=== PATIENT | male | born 1965 | race Two or more races ===

== ENCOUNTER 2017-02-09 21:06 | Emergency (ER) | payer MEDICAID ==
[~2017-02-09] VITALS: Ht 175.3 cm; Wt 104.3 kg
[2017-02-09 22:19] LABS: Urine Bilirubin Negative (Negative); Urine Blood TRACE /uL (Negative); Urine Color Yellow (Yellow); Urine Glucose Normal (Normal); Urine Hyaline Cast FEW /lpf (0 - 2); Urine Ketone Negative (Negative); Urine Mucus FEW (None Seen); Urine RBC 7 /hpf (0 - 3); Urine Squamous Epithelial Cell FEW /hpf (<5); Urine Urobilinogen Normal (Negative); Urine pH 5.5 (5.0-8.0)
[2017-02-09 22:29] LABS: Basophils # (auto) 0 uL; Basophils % (auto) 0.6 % (0.0-2.0); Eosinophils # (auto) 0.1 uL; Eosinophils % (auto) 1.4 % (0.0-7.0); Hematocrit 41.5 % (41.0-53.0); Hemoglobin 14.1 g/dL (13.5-17.5); Lymphocytes # (auto) 1.7 uL; Lymphocytes % (auto) 21.9 % (10.0-50.0); Mean Corpuscular Hemoglobin 29.9 pg (28.0-32.0); Mean Corpuscular Hgb Conc. 33.8 g/dL (32.0-36.0); Mean Corpuscular Volume 88.5 fL (80.0-100.0); Mean Platelet Volume 8.4 fL (7.4-10.4); Monocytes # (auto) 0.5 uL; Monocytes % (auto) 6.1 % (0.0-12.0); Neutrophils # (auto) 5.4 uL; Platelet Count (auto) 301 10^3/uL (140-450); Red Cell Distribution Width 13.8 % (11.6-16.0); White Blood Cell 7.7 10^3/uL (4.4-10.8)
[2017-02-09 22:46] LABS: Albumin 3.8 g/dL (3.4-5.0); BUN/Creatinine Ratio 14.8; Bilirubin, Total 0.7 mg/dL (0.2-1.0); Calcium 9.1 mg/dL (8.5-10.1); Potassium 3.9 mmol/L (3.5-5.1); Total Protein 8.1 g/dL (6.4-8.2)
[2017-02-09 22:49] LABS: Urine Nitrite POSITIVE (Negative)
[2017-02-10] MEDS ORDERED: MORPHINE SULFATE 4 MG/ML SYRG IV ONE (03:45)
[2017-02-10] MEDS ORDERED: MORPHINE SULFATE 4 MG/ML SYRG IM ONE (03:45)
[2017-02-10] MEDS ORDERED: ONDANSETRON HCL 4 MG/2 ML VIAL IM ONE (03:45)
[2017-02-10] MEDS ORDERED: ONDANSETRON HCL 4 MG/2 ML VIAL IV ONE (03:45)
[2017-02-10 05:37] VITALS: BP 143/89
== END 2017-02-10 05:44 | disposition home or self-care (01) ==
LOC: ER 21:20
DX: N39.0 Urinary tract infection, site not specified (principal)
CPT/HCPCS: 36415; 80053; 81001; 85025; 96372; 99284; J2270; J2405

== ENCOUNTER 2018-11-02 10:44 | Emergency (ER) | payer MEDICAID ==
[~2018-11-02] VITALS: Ht 175.3 cm; Wt 108.9 kg
[2018-11-02 12:58] VITALS: BP 152/94
[2018-11-02 13:32] LABS: Urine Amorphous Crystal MOD /hpf (None Seen); Urine Bacteria MANY /hpf (None Seen); Urine Blood Negative /uL (Negative); Urine Mucus FEW (None Seen); Urine Specific Gravity 1.018 (1.001-1.035); Urine WBC 148 /hpf (0 - 3)
== END 2018-11-02 14:04 | disposition home or self-care (01) ==
LOC: ER 10:49
DX: N39.0 Urinary tract infection, site not specified (principal); I10 Essential (primary) hypertension; F41.9 Anxiety disorder, unspecified
CPT/HCPCS: 81001

== ENCOUNTER 2019-01-21 03:26 | Emergency (ER) | payer MEDICAID ==
[~2019-01-21] VITALS: Ht 182.9 cm; Wt 95.3 kg
[2019-01-21 03:51] VITALS: BP 188/127
== END 2019-01-21 05:51 | disposition left against medical advice (07) ==
LOC: ER 03:27
DX: R31.9 Hematuria, unspecified (principal); Z53.21 Procedure and treatment not carried out due to patient leaving prior to being seen by health care provider

== ENCOUNTER 2019-06-24 08:55 | Emergency (ER) | payer MEDICAID ==
[~2019-06-24] VITALS: Ht 175.3 cm; Wt 104.3 kg
[2019-06-24 09:20] VITALS: BP 130/85
[2019-06-24 09:29] LABS: Urine Bacteria MANY /hpf (None Seen); Urine Blood Negative /uL (Negative); Urine Specific Gravity 1.014 (1.001-1.035); Urine WBC 37 /hpf (0 - 3)
== END 2019-06-24 09:55 | disposition home or self-care (01) ==
LOC: ER 08:55
DX: N39.0 Urinary tract infection, site not specified (principal); F41.9 Anxiety disorder, unspecified; I10 Essential (primary) hypertension
CPT/HCPCS: 81001

== ENCOUNTER 2019-12-19 11:15 | Emergency (ER) | payer MEDICAID ==
[~2019-12-19] VITALS: Ht 175.3 cm; Wt 106.6 kg
[2019-12-19 12:20] VITALS: BP 159/103
== END 2019-12-19 12:43 | disposition home or self-care (01) ==
LOC: ER 11:15
DX: L73.9 Follicular disorder, unspecified (principal); I10 Essential (primary) hypertension; Z87.442 Personal history of urinary calculi

== ENCOUNTER 2020-03-01 20:57 | Emergency (ER) | payer MEDICAID ==
[~2020-03-01] VITALS: Ht 175.3 cm; Wt 106.6 kg
[2020-03-01] MEDS ORDERED: KETOROLAC TROMETH 60MG/2ML VIAL IM ONE (22:30)
[2020-03-01] MEDS ORDERED: HYDROcodone-ACET 5/325MG TAB PO ONE (22:30)
[2020-03-01] MEDS ORDERED: TETANUS-DIPTH-ACEL PERTUSSIS 0.5ML SYR Tdap IM ONE (22:30)
[2020-03-01] MEDS ORDERED: LIDOCAINE 1% HCL (LOCAL ANESTH.) INJ 20ML MDV IJ ONE (22:30)
[2020-03-02 00:46] VITALS: BP 125/80
== END 2020-03-02 01:02 | disposition home or self-care (01) ==
LOC: ER 20:58
DX: S02.2XXA Fracture of nasal bones, initial encounter for closed fracture (principal); S02.412A LeFort II fracture, initial encounter for closed fracture; H70.002 Acute mastoiditis without complications, left ear; I10 Essential (primary) hypertension; W22.8XXA Striking against or struck by other objects, initial encounter; Y93.89 Activity, other specified; Y92.89 Other specified places as the place of occurrence of the external cause; Y99.8 Other external cause status
CPT/HCPCS: 12014; 70486; 90471; 90715; 96372; 99284; J1885; J2001

== ENCOUNTER 2020-03-10 13:40 | Emergency (ER) | payer MEDICAID ==
[~2020-03-10] VITALS: Ht 175.3 cm; Wt 106.6 kg
[2020-03-10 13:51] VITALS: BP 136/81
== END 2020-03-10 14:30 | disposition home or self-care (01) ==
LOC: ER 13:40
DX: S01.81XD Laceration without foreign body of other part of head, subsequent encounter (principal); X58.XXXD Exposure to other specified factors, subsequent encounter

== ENCOUNTER 2020-10-27 12:58 | Emergency (ER) | payer MEDICAID ==
[~2020-10-27] VITALS: Ht 175.3 cm; Wt 104.3 kg
[2020-10-27 13:20] VITALS: BP 132/88
[2020-10-27 15:10] LABS: Urine Amorphous Crystal FEW /hpf (None Seen); Urine Bacteria MANY /hpf (None Seen); Urine Blood Negative /uL (Negative); Urine Budding Yeast MANY /hpf (None Seen); Urine Specific Gravity 1.015 (1.001-1.035); Urine WBC 101 /hpf (0 - 3)
== END 2020-10-27 15:38 | disposition home or self-care (01) ==
LOC: ER 12:58
DX: S39.012A Strain of muscle, fascia and tendon of lower back, initial encounter (principal); N39.0 Urinary tract infection, site not specified; N40.0 Benign prostatic hyperplasia without lower urinary tract symptoms; I10 Essential (primary) hypertension; F41.9 Anxiety disorder, unspecified; X58.XXXA Exposure to other specified factors, initial encounter; Y93.89 Activity, other specified; Y92.89 Other specified places as the place of occurrence of the external cause; Y99.8 Other external cause status
CPT/HCPCS: 74176; 81001

== ENCOUNTER 2023-02-22 10:49 | Outpatient (CLI) | payer MEDICAID ==
[~2023-02-22] VITALS: Ht 175.3 cm; Wt 97.1 kg
[2023-02-22 11:17] LABS: Basophils # (auto) 0 10 ^3/uL (0-0.2); Basophils % (auto) 0.3 % (0.0-2.0); Eosinophils # (auto) 0 10 ^3/uL (0-0.8); Eosinophils % (auto) 0.8 % (0.0-7.0); Hematocrit 35.3 % (41.0-53.0); Hemoglobin 11.7 g/dL (13.5-17.5); Lymphocytes # (auto) 1.7 10 ^3/uL (0.4-5.4); Lymphocytes % (auto) 36.4 % (10.0-50.0); Mean Corpuscular Hemoglobin 28.7 pg (28.0-32.0); Monocytes # (auto) 0.4 10 ^3/uL (0-1.3); Monocytes % (auto) 8.8 % (0.0-12.0); Neutrophils # (auto) 2.5 10 ^3/uL (1.6-8.6); Neutrophils % (auto) 53.7 % (37.0-80.0); Nucleated Red Blood Cells % 0.3 %; Red Blood Cells 4.06 10^6/uL (4.5-5.90); Red Cell Distribution Width 13.7 % (11.8-14.3); White Blood Cell 4.7 10^3/uL (4.4-10.8)
[2023-02-22 11:58] LABS: Calcium 9.7 mg/dL (8.5-10.1)
[2023-02-22 11:59] LABS: INR 1.07 (0.9-1.15); Partial Thromboplastin Time 31.5 sec (24.6-33.4)
[2023-02-22 12:02] LABS: Albumin 3.9 g/dL (3.4-5.0); BUN/Creatinine Ratio 10.6 (10.0-20.0)
[2023-02-22 12:05] LABS: Bilirubin, Total 1.2 mg/dL (0.2-1.0); Total Protein 9.6 g/dL (6.4-8.2)
[2023-04-03] MEDS ORDERED: MIDAZOLAM HCL 5 MG/ML-1ML VIAL ONE (12:11)
[2023-04-03] MEDS ORDERED: SODIUM CHLORIDE LOCK 0 ML ONE (12:11)
[2023-04-03] MEDS ORDERED: diphenhdrAMINE HCL 50 MG/1 ML VL ONE (12:12)
[2023-04-03] MEDS ORDERED: fentaNYL CITRATE 100 MCG/2 ML VL ONE (12:13)
== END 2023-02-22 11:00 | disposition home or self-care (01) ==
LOC: LAB 10:49 → EDSTATUS 02-26 10:30
PROVIDERS: ATTEND Internal Medicine Gastroenterology
DX: Z01.812 Encounter for preprocedural laboratory examination (principal); R63.4 Abnormal weight loss; K21.9 Gastro-esophageal reflux disease without esophagitis; D64.9 Anemia, unspecified
CPT/HCPCS: 36415; 80053; 85025; 85610; 85730

== ENCOUNTER → 2023-04-03 | Day surgery (SDC) | payer MEDICAID ==
[2023-04-02 12:25] LABS: Hematocrit 35.5 % (41.0-53.0); Hemoglobin 11.9 g/dL (13.5-17.5); Mean Corpuscular Hemoglobin 29.5 pg (28.0-32.0); Mean Corpuscular Hgb Conc. 33.6 g/dL (32.0-36.0); Mean Corpuscular Volume 87.9 fL (80.0-100.0); Red Blood Cells 4.04 10^6/uL (4.5-5.90); Red Cell Distribution Width 16.5 % (11.8-14.3); White Blood Cell 3.6 10^3/uL (4.4-10.8)
[2023-04-02 12:30] LABS: Band Neutrophils % (manual) 0; Basophils % (manual) 0 (0.0-2.0); Blast Cells 0; Eosinophils % (manual) 0 (0-7); Metamyelocytes % 0; Myelocytes % 0; Promyelocytes % 0; Reactive Lymphocytes 0
[2023-04-02 12:44] LABS: Lymphocytes % (manual) 47 (10.0-50.0); Monocytes % (manual) 5 (0-12)
[2023-04-02 12:45] LABS: INR 1.03 (0.9-1.15); Partial Thromboplastin Time 28.6 sec (24.6-33.4)
[2023-04-02 13:22] LABS: Potassium 4.2 mmol/L (3.5-5.1)
[2023-04-02 13:46] LABS: Albumin 4.2 g/dL (3.4-5.0); BUN/Creatinine Ratio 7.9 (10.0-20.0); Bilirubin, Total 0.7 mg/dL (0.2-1.0); Calcium 8.8 mg/dL (8.5-10.1); Total Protein 8.5 g/dL (6.4-8.2)
[~2023-04-03] VITALS: Ht 175.3 cm; Wt 97.1 kg
[~2023-04-03] MED LIST: SODIUM CHLORIDE LOCK 10 ML ONE
[2023-04-03] MEDS: fentaNYL CITRATE 100 MCG/2 ML VL ONE ×4 (15:16→15:28)
[2023-04-03] MEDS: diphenhdrAMINE HCL 50 MG/1 ML VL ONE ×2 (15:16→15:17)
[2023-04-03] MEDS: MIDAZOLAM HCL 5 MG/ML-1ML VIAL ONE ×3 (15:16→15:24)
[2023-04-03 16:15] VITALS: BP 160/99
== END | disposition home or self-care (01) ==
LOC: GI 13:29
PROVIDERS: ATTEND Internal Medicine Gastroenterology
DX: R63.4 Abnormal weight loss (principal); D64.9 Anemia, unspecified; K63.5 Polyp of colon; K64.8 Other hemorrhoids
CPT/HCPCS: 36415; 45385; 80053; 85007; 85027; 85610; 85730

== ENCOUNTER 2023-06-14 10:59 | Day surgery (SDC) | payer MEDICAID ==
[2023-06-13 11:11] LABS: Basophils # (auto) 0 10 ^3/uL (0-0.2); Basophils % (auto) 0.2 % (0.0-2.0); Eosinophils # (auto) 0 10 ^3/uL (0-0.8); Eosinophils % (auto) 0.8 % (0.0-7.0); Hematocrit 40.1 % (41.0-53.0); Hemoglobin 13.3 g/dL (13.5-17.5); Lymphocytes # (auto) 1.8 10 ^3/uL (0.4-5.4); Lymphocytes % (auto) 50.1 % (10.0-50.0); Mean Corpuscular Hemoglobin 29.2 pg (28.0-32.0); Mean Corpuscular Hgb Conc. 33.2 g/dL (32.0-36.0); Mean Corpuscular Volume 87.9 fL (80.0-100.0); Monocytes # (auto) 0.3 10 ^3/uL (0-1.3); Monocytes % (auto) 9.3 % (0.0-12.0); Neutrophils # (auto) 1.5 10 ^3/uL (1.6-8.6); Neutrophils % (auto) 39.6 % (37.0-80.0); Nucleated Red Blood Cells % 0.1 %; Red Blood Cells 4.55 10^6/uL (4.5-5.90); Red Cell Distribution Width 13.6 % (11.8-14.3); White Blood Cell 3.7 10^3/uL (4.4-10.8)
[2023-06-13 11:28] LABS: INR 1.1 (0.9-1.15); Partial Thromboplastin Time 31.3 SEC (24.5-34.5); Prothrombin Time 11.5 sec (9.3-11.8)
[2023-06-13 11:54] LABS: Albumin 4.3 g/dL (3.4-5.0); Calcium 9.2 mg/dL (8.5-10.1); Potassium 4.1 mmol/L (3.5-5.1)
[2023-06-13 11:57] LABS: BUN/Creatinine Ratio 9.6 (10.0-20.0); Bilirubin, Total 1.5 mg/dL (0.2-1.0); Total Protein 9.1 g/dL (6.4-8.2)
[~2023-06-14] VITALS: Ht 175.3 cm; Wt 98.4 kg
[~2023-06-14 10:59] MED LIST changes: +LOSA100T58 PO; -SODIUM CHLORIDE LOCK 10 ML ONE
[2023-06-14] MEDS ORDERED: SODIUM CHLORIDE LOCK 10 ML ONE (12:08)
[2023-06-14] MEDS ORDERED: LIDOCAINE VISCOUS 2% 15ML UD ONE (12:08)
[2023-06-14] MEDS: diphenhdrAMINE HCL 50 MG/1 ML VL ONE ×2 (13:24→13:26)
[2023-06-14] MEDS: MIDAZOLAM HCL 5 MG/ML-1ML VIAL ONE ×3 (13:24→13:30)
[2023-06-14] MEDS: fentaNYL CITRATE 100 MCG/2 ML VL ONE ×2 (13:24→13:27)
[2023-06-14 13:41] VITALS: BP 151/102; PULSE 78; RESP 13; TEMP 98.2; O2SAT 99
== END 2023-06-14 14:30 | disposition home or self-care (01) ==
LOC: GI 10:59
PROVIDERS: ATTEND Internal Medicine Gastroenterology
DX: K21.9 Gastro-esophageal reflux disease without esophagitis (principal); K29.50 Unspecified chronic gastritis without bleeding; K21.00 Gastro-esophageal reflux disease with esophagitis, without bleeding; K31.7 Polyp of stomach and duodenum; K31.89 Other diseases of stomach and duodenum; K22.10 Ulcer of esophagus without bleeding; K44.9 Diaphragmatic hernia without obstruction or gangrene; F41.9 Anxiety disorder, unspecified; I12.9 Hypertensive chronic kidney disease with stage 1 through stage 4 chronic kidney disease, or unspecified chronic kidney disease; N18.30 Chronic kidney disease, stage 3 unspecified; Z79.899 Other long term (current) drug therapy
CPT/HCPCS: 36415; 43239; 80053; 85025; 85610; 85730; 88305; 88312; 88313; 88342; J1200; J2250; J3010; J7030

== ENCOUNTER → 2023-08-06 | Outpatient (CLI) | payer MEDICAID ==
[2023-08-06 11:56] LABS: Basophils # (auto) 0 10 ^3/uL (0-0.2); Basophils % (auto) 0.2 % (0.0-2.0); Eosinophils # (auto) 0 10 ^3/uL (0-0.8); Eosinophils % (auto) 0.7 % (0.0-7.0); Hematocrit 38.9 % (41.0-53.0); Hemoglobin 13.4 g/dL (13.5-17.5); Lymphocytes # (auto) 1.5 10 ^3/uL (0.4-5.4); Mean Corpuscular Hemoglobin 29.9 pg (28.0-32.0); Mean Corpuscular Hgb Conc. 34.5 g/dL (32.0-36.0); Mean Corpuscular Volume 86.7 fL (80.0-100.0); Monocytes # (auto) 0.3 10 ^3/uL (0-1.3); Monocytes % (auto) 7.8 % (0.0-12.0); Neutrophils # (auto) 1.6 10 ^3/uL (1.6-8.6); Neutrophils % (auto) 47.3 % (37.0-80.0); Nucleated Red Blood Cells % 0.1 %; Red Blood Cells 4.48 10^6/uL (4.5-5.90); Red Cell Distribution Width 13.5 % (11.8-14.3); White Blood Cell 3.4 10^3/uL (4.4-10.8)
[2023-08-06 12:11] LABS: INR 1.11 (0.9-1.15); Prothrombin Time 11.6 sec (9.3-11.8)
[2023-08-06 12:28] LABS: Alanine Aminotransferase 15 U/L (7-40); Albumin 4.8 g/dL (3.2-4.8); Alkaline Phosphatase 115 U/L (46-116); Anion Gap 7 (5-15); Aspartate Aminotransferase 18 U/L (13-40); BUN/Creatinine Ratio 12.1 (10.0-20.0); Blood Urea Nitrogen 20 mg/dL (9-23); Calcium 9.6 mg/dL (8.5-10.1); Carbon Dioxide 25 mmol/L (20-30); Chloride 107 mmol/L (98-107); Glucose 92 mg/dL (74-106); LDL Cholesterol 60 mg/dL (< 100); Potassium 4.2 mmol/L (3.5-5.1); Sodium 139 mmol/L (136-145); Triglycerides 93 mg/dL (< 150)
[2023-08-06 12:29] LABS: Bilirubin, Total 2.1 mg/dL (0.2-1.0); Cholesterol 116 mg/dL (< 200); HDL Cholesterol 29 mg/dL (40-59); Total Protein 8.3 g/dL (5.7-8.2)
[2023-08-07 11:07] LABS: AFP Serum Tumor Marker <1.8 ng/mL (0.0-8.4)
[2023-08-07 15:06] LABS: Anti-Nuclear Antibody Direct Negative (Negative)
== END | disposition home or self-care (01) ==
LOC: LAB 11:17
PROVIDERS: ATTEND Internal Medicine Gastroenterology
DX: R94.5 Abnormal results of liver function studies (principal)
CPT/HCPCS: 36415; 80053; 80061; 82105; 82728; 85025; 85610; 86038; 86803; 87340

== ENCOUNTER → 2024-10-15 | Outpatient (CLI) | payer MEDICAID ==
[~2024-10-15] VITALS: Ht 175.3 cm; Wt 101.2 kg
[~2024-10-15] MED LIST changes: +LOSA-535 PO; -LOSA100T58 PO
[2024-10-15] MEDS: REGADENOSON 0.4 MG/5 ML SYRG IV ONE ×2 (12:06→12:09)
--- NOTE | 2024-10-15 14:14 | DVHSR ---
APPROVED REPORT Exam: Nuclear Stress Test BMI: 0 Stress Test Details HR Max Heart Rate (APMHR): 160.729913 bpm Target HR (85% APMHR): 136.477941 bpm BP ECG Stress ECG Conclusion There is a medium area of severely reduced uptake in the basal and mid segment of the inferior wall w hich is seen on the stress images as well as the resting images. This area and is most consistent wi th myocardial scar. Well-preserved left ventricular systolic function at 68%. 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 Time of rest injection: 1055 Time of rest imagin Administration Route: IV Administration Site: Left AC Pharmacologic Stress Pharmacologic stress test was performed by injecting Regadenoson 0.4 mg IV push followed by the intra venous injection of 32.3 mCi of Tc-99m Sestamibi. Time of stress injection: 1207 Time of stress imagin Administration Route: IV Administration Site: Left AC Gated Stress SPECT was performed 60 minutes after stress injection. The images were gated to evaluate regional wall motion and calculate left ventricular ejection fracti on. Stress only was performed in the Supine position. Perfusion There is a medium area of severely reduced uptake in the basal and mid segment of the inferior wall w hich is seen on the stress images as well as the resting images. This area and is most consistent wi th myocardial scar. Nuclear Conclusion Clinical Findings: negative for ischemia Nuclear Findings: negative for ischemia Exercise Capacity: not assessed Left Ventricular Function: normal Risk Study: low There is a medium area of severely reduced uptake in the basal and mid segment of the inferior wall w hich is seen on the stress images as well as the resting images. This area and is most consistent wi th myocardial scar. Well-preserved left ventricular systolic function at 68%. 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
== END | disposition home or self-care (01) ==
LOC: XYW 10:16
PROVIDERS: ATTEND Student in an Organized Health Care Education/Training Program
DX: R07.9 Chest pain, unspecified (principal); R94.31 Abnormal electrocardiogram [ECG] [EKG]; I10 Essential (primary) hypertension; E78.5 Hyperlipidemia, unspecified; Z87.891 Personal history of nicotine dependence; Z82.49 Family history of ischemic heart disease and other diseases of the circulatory system
CPT/HCPCS: 78452; 93017; A9500; J2785

== ENCOUNTER 2025-03-11 18:10 | Emergency (ER) | payer MEDICAID ==
[~2025-03-11] VITALS: Ht 175.3 cm; Wt 107.3 kg
[2025-03-11 19:40] VITALS: BP 131/84; TEMP 97.5
[2025-03-11 19:41] VITALS: PULSE 82; RESP 16; O2SAT 98
[2025-03-11] MEDS: cloNIDine HCL 0.1 MG TAB PO ONE (19:45)
[2025-03-11] MEDS ORDERED: NIFE1TAB30 PO (19:46)
--- NOTE | 2025-03-11 19:47 | ED.PDOC ---
History of Present Illness HPI Comments This patient is a morbidly obese 59-year-old male who arrives the ED today with a request for blood pressure medication refill. Patient takes nifedipine 60 mg daily. Patient states that he is out of the medication due to lack of follow up with his primary care provider. Patient's blood pressure was stable on arrival. Patient denies any symptoms related to his blood pressure concerns. Chief Complaint: High Blood Pressure Time Seen by MD: 18:11 Primary Care Provider: UNKNOWN Reviewed Notes: Nurses Notes Allergies: Coded Allergies: NO KNOWN ALLERGIES (Unverified , 02/23/12) Home Meds Reported Medications Losartan Potassium (Losartan Potassium) 100 Mg Tab, 100 MG PO DAILY, TAB 06/13/23 Information Source: Patient Mode of Arrival: Ambulatory Severity: Moderate Timing: Weeks Duration: Since onset Prehospital treatment: None Medication Refill: Ran out of Medication, For: Hypertension Past Medical History PAST MEDICAL HISTORY: Anxiety, HTN Surgical History: Denies all surgeries Family History Family History: Reviewed,noncontributory to illness, No family hx of DM, No f amily hx of Heart gemini, No family hx of HTN, No family hx ofKidney gemini Social History Smoker: Non-Smoker Alcohol: Denies ETOH Use Drugs: Denies Drug Use Lives In: Home Constitutional: denies: chills, diaphoresis, fatigue, fever, malaise, sweats, weakness, others EENTM: denies: blurred vision, double vision, ear bleeding, ear discharge, ear drainage, ear pain, ear ringing, eye pain, eye redness, hearing loss, mouth pain, mouth swelling, nasal discharge, nose bleeding, nose congestion, nose pa in, photophobia, tearing, throat pain, throat swelling, voice changes, others Respiratory: denies: cough, hemoptysis, orthopnea, SOB at rest, shortness of breath, SOB with excertion, stridor, wheezing, others Cardiovascular: denies: chest pain, dizzy spells, diaphoresis, Dyspnea on exertion, edema, irregular heart beat, left arm pain, lightheadedness, palpitations, PND, syncope, others Gastrointestinal: denies: abdomen distended, abdominal pain, blood streaked bowels, constipated, diarrhea, dysphagia, difficulty swallowing, hematemesis, melena, nausea, poor appetite, poor fluid intake, rectal bleeding, rectal pain, vomiting, others Genitourinary: denies: burning, dysuria, flank pain, frequency, hematuria, incontinence, penile discharge, penile sore, pain, testicle pain, testicle swelling, urgency, others Neurological: denies: dizziness, fainting, headache, left sided numbness, left sided weakness, numbness, paresthesia, pre-existing deficit, right sided numbness, right sided weakness, seizure, speech problems, tingling, tremors, weakness, others Musculoskeletal: denies: back pain, gout, joint pain, joint swelling, muscle pain, muscle stiffness, neck pain, others Integumetry: denies: bruises, change in color, change in hair/nails, dryness, laceration, lesions, lumps, rash, wounds, others Allergic/Immunocompromised: denies: Difficulty Healing, Frequent Infections, Hives, Itching, others Hematologic/Lymphatic: denies: anemia, blood clots, easy bleeding, easy bruising, swollen glands, others Endocrine: denies: excessive hunger, excessive sweating, excessive thirst, excessive urination, flushing, intolerance to cold, intolerance to heat, unexplained weight gain, unexplained weight loss, others Psychiatric: denies: anxiety, bipolar disorder, depression, hopeless, panic disorder, schizophrenia, sleepless, suicidal, others Physical Exam General Appearance: No Apparent Distress (Patient was in no apparent distress at time of evaluation and looks comfortable.), Normal HEENT: Normal ENT Inspection, Pharynx Normal, TMs Normal Neck: Full Range of Motion, Non-Tender, Normal, Normal Inspection Respiratory: Chest Non-Tender, Lungs Clear, No Accessory Muscle Use, No Respiratory Distress, Normal Breath Sounds Cardiovascular: No Edema, No JVD, No Murmur, No Gallop, Normal Peripheral Pulses, Regular Rate/Rhythm Breast Exam: Deferred Gastrointestinal: No Organomegaly, Non Tender, No Pulsatile Mass, Normal Bowel Sounds, Soft Genitalia: Deferred Pelvic: Deferred Rectal: Deferred Extremities: No calf tenderness, Normal capillary refill, Normal inspection, Normal range of motion, Non-tender, No pedal edema Neurologic: Alert, No Motor Deficits, Normal Affect, Normal Mood, No Sensory Deficits Cerebellar Function: Normal Reflexes: Normal Skin: Dry, Normal Color, Warm Lymphatic: No Adenopathy Was a procedure done? Was a procedure done?: No Differential Dx Considerations may include: Request for medication refill, hypertension X-Ray, Labs, Meds, VS Vital Signs Date Time Temp Pulse Resp B/P (MAP) Pulse Ox O2 Delivery O2 Flow Rate FiO2 03/11/25 19:40 97.5 82 16 131/84 (100) 98 97.5 03/11/25 18:29 97.5 87 18 143/96 (112) 97 97.5 03/11/25 18:29 97.5 87 18 143/96 (112) 98 97.5 X-Ray, Labs, Meds, VS Comment Advised patient that I will give him a month's supply of his medication but the patient needs to follow up with his primary care provider for long-term management of his blood pressure concerns. Time of 1ST Reevaluation: 19:45 Reevaluation 1ST: Improved Consultation: PCP Patient Education/Counseling: Diagnosis, Treatment Family Education/Counseling: Diagnosis, Treatment Departure 1 Departure Time of Disposition: 19:45 Impression: Primary Impression: Encounter for medication refill Disposition: HOME / SELF CARE / HOMELESS Condition: Stable Additional Instructions: Advised patient utilize medication as directed and additionally, patient needs to follow up with his primary care provider for long-term management of his blood pressure and blood pressure medication concerns. e-Prescriptions Nifedipine (Nifedipine Er) 60 Mg Tab 1 TAB PO DAILY, #30 TAB 0 Refills Prov: PHILIPPE LUNA 03/11/25 Discharged With: Self, Friend Critical Care Note Critical Care Time?: No Stability Stability form required: No Heart Score Heart Score: Heart Score Response (Comments) Value History N/A 0 EKG N/A 0 Age N/A 0 Risk Factors N/A 0 Troponin N/A 0 Total 0 PHILIPPE LUNA PAC March 11, 2025 19:47
== END 2025-03-11 20:18 | disposition home or self-care (01) ==
LOC: ER 18:15
DX: I10 Essential (primary) hypertension (principal); F41.9 Anxiety disorder, unspecified; Z76.0 Encounter for issue of repeat prescription; Z79.899 Other long term (current) drug therapy